=== PATIENT | female | born 1935 | race Caucasian/White ===

== ENCOUNTER 2019-05-16 10:20 | Emergency (ER) | payer OTHER, SELFPAY ==
--- NOTE | ~2019-05-16 | XR_ITS ---
EXAMINATION: XR chest 2V DATE: 05/16/2019 10:49 INDICATION: Acute chest pain. TECHNIQUE: Frontal and lateral views of the chest were obtained. COMPARISON: Chest single view 08/17/2013 FINDINGS: There are small pleural effusions. There is mild atelectasis in right midlung zone. No pneu mothorax. The heart size is normal. There are changes of heart valve replacement. There is a left carlitos st wall pacer with leads in the right atrium and right ventricle. IMPRESSION: 1. Mild atelectasis in right midlung zone. 2. Small pleural effusions. Reviewed, dictated and finalized at location [facility]
--- NOTE | 2019-05-16 10:21 | ECG_ITS ---
Measurements Intervals [place] Rate: 70 P: [place]: 0 QRS: -70 QRSD: 163 T: 76 QT: 486 QTc: 527 Interpretive Statements ATRIAL SENSE- ELECTRONIC VENTRICULAR PACEMAKER UNDERLYING ECTOPIC ATRIAL RHYTHM BASELINE WANDER- I, III NO FURTHER INTERPRETATION IS POSSIBLE ABNORMAL ECG Electronically Signed On 05-16-2019 13:50:58 PIE MAKER by Osmel Adhikari D.O.
[2019-05-16 10:30] VITALS: BP 159/72; PULSE 70; RESP 18; TEMP 36.6; O2SAT 100
--- NOTE | 2019-05-16 10:38 | ED.CHESTPAIN ---
HPI - Chest Pain General Chief Complaint: Chest Pain Stated Complaint: CP Time Seen by Provider: 05/16/19 10:36 Source: patient Mode of arrival: ambulatory Limitations: no limitations History of Present Illness HPI narrative: An 83 y/o female presents to the ED with c/o CP. Pt states that the CP has been intermittent for the past 2 months. She notes that the CP is usually dull, but occasionally increases in severity. Pt was seen by her weather strip installer, Dr. Martin, on 05/12/19. She also notes left arm pain that starts in her left hand that radiates all the way to her left chest. Pt reports SOB and slight cough, but denies diaphoresis, fever, vomiting, decreased food and liquid intake, and BLE swelling. She has a PMHx of valve replacement, CABG, CAD, and cardiac catheterization. She take Aspirin daily. MD complaint: chest pain Pertinent past history: coronary artery disease and CABG Onset (ago): month(s) (2) Timing of current episode: episodic Quality: dull Associated symptoms: dyspnea, cough (Slight) and other (Left arm pain) Treatment prior to arrival: aspirin Related Data Home Medications Medication Instructions Recorded Confirmed aspirin 81 mg PO DAILY 05/16/19 cholecalciferol (vitamin D3) 2,000 unit PO DAILY 05/16/19 [Vitamin D3] metoprolol tartrate 25 mg PO BID 05/16/19 solifenacin [Vesicare] 10 mg PO DAILY 05/16/19 Allergies Allergy/AdvReac Type Severity Reaction Status Date / Time No Known Allergies Allergy Verified 05/16/19 11:33 Review of Systems Review of Systems: Narrative: CONSTITUTIONAL: Denies fever, decreased food and liquid intake, chills, or sweats. EYES: Denies visual changes, redness, or discharge. ENT: Denies rhinorrhea, congestion, sore throat, or otalgia. CARDIOVASCULAR: Denies palpitations, diaphoresis, or BLE edema. Reports chest pain. RESPIRATORY: Reports slight cough or dyspnea. GASTROINTESTINAL: Denies abdominal pain, nausea, vomiting, or diarrhea. SKIN: Denies rash or itching. MUSCULOSKELETAL: Denies back pain or joint pain. Reports left arm pain. NEUROLOGIC: Denies headache, numbness, or weakness. All systems reviewed & are unremarkable except as noted in HPI and below PMFSH Past Medical History Medical History (Updated 05/16/19 @ 13:45 by Allison Monzon MD) Anemia Arthritis Asthma CAD (coronary artery disease) Cancer Mandible as child Cataracts, bilateral CHF (congestive heart failure) Chronic back pain Colonic polyp Diabetes Dialysis patient Hemorrhoids Herniated disc History of radiation therapy HTN (hypertension) Hyperlipidemia Kidney stones Mitral valve regurgitation Pneumonia Rectal polyp UTI (urinary tract infection) Surgical History Surgical History (Updated 05/16/19 @ 11:30 by Bonita Lo) History of appendectomy History of cardiac catheterization History of colonoscopy History of hysterectomy History of lithotripsy History of mitral valve repair History of tonsillectomy Hx of CABG Family History Family History Mother Hypertension Other Family history of arthritis Social History Social History Smoking status: Never smoker Alcohol intake: never Exam Narrative: Exam Narrative: GENERAL: Well-appearing, well-nourished, and in no acute distress. HEAD: Normocephalic, atraumatic. EYES: PERRLA and EOMI. ENT: Nares clear, no rhinorrhea or epistaxis. Mucous membranes moist. NECK: Supple. CHEST: Clear to auscultation. No respiratory distress. HEART: Regular rate and rhythm. Normal peripheral pulses. Grade 1 faint systolic heart murmur. ABDOMEN: Soft, nontender, nondistended, normal active bowel sounds. EXTREMITIES: Normal range of motion. No edema. SKIN: Warm, dry, no rash. NEURO: No focal deficits. Alert and oriented X3. Course Course Emergency Course: Patient presented for evaluation of chest pain. Chest pain has been intermittent since yest
[2019-05-16 10:50] LABS: Basophils Absolute Auto 0.1 K/mm3 (0.0-0.1); Basophils Percent Auto 0.8 % (0.2-1.2); Eosinophils Absolute Auto 0.2 K/mm3 (0-0.3); Eosinophils Percent Auto 2.6 % (0-4.4); Hematocrit 34.2 % (37.0-47.0); Hemoglobin 10.2 g/dL (12.0-15.0); Immature Granulocyte Absolute 0.02 K/mm3 (0.00-0.031); Immature Granulocyte Percent A 0.3 % (0-0.5); Lymphocytes Percent Auto 15.9 % (18.3-44.2); Mean Corpuscular HGB Conc 29.8 g/dl (32-36); Mean Corpuscular Hemoglobin 23.1 pg (26-34); Mean Corpuscular Volume 77.4 fl (80-100); Mean Platelet Volume 10.6 fl (7.4-10.4); Monocytes Absolute Auto 0.6 K/mm3 (0.1-0.6); Monocytes Percent Auto 8.5 % (2.6-8.5); Neutrophils Absolute Auto 5.4 K/mm3 (1.3-6.7); Neutrophils Percent Auto 71.9 % (45.5-73.1); Platelet Count Result 192 k/mm3 (150-375); Red Blood Count 4.42 M/mm3 (4.2-5.4); Red Cell Distribution Width 15.2 % (11.5-14.5); White Blood Count 7.6 K/mm3 (4.5-10.0)
[2019-05-16 10:57] LABS: Ovalocytes 2+ (NORMAL); Platelet Estimate Adequate (Adequate)
[2019-05-16 11:00] LABS: Prothrombin Time 13.2 Seconds (11.1-14.7)
[2019-05-16 11:01] LABS: Partial Thromboplastin Time 28.2 SECONDS (22.3-36.8)
[2019-05-16 11:02] LABS: Blood Urea Nitrogen 23 mg/dL (7-17); Calcium 8.8 mg/dL (8.4-10.2); Carbon Dioxide 28 mmol/L (22-30); Chloride 99 mmol/L (98-107); Estimated Glomerular Filt Rate 48; Glucose 107 mg/dL (65-105); Potassium 3.9 mmol/L (3.4-5.0); Sodium 138 mmol/L (137-145)
[2019-05-16 11:14] LABS: Troponin I < 0.012 ng/mL (0.000-0.034)
[2019-05-16] MEDS: ACETAMINOPHEN 500 MG TABLET 1000 MG PO (12:33)
[2019-05-16] MEDS: KETOROLAC 15 MG/ML VIAL (*BKC) IV PUSH (12:34)
[2019-05-16 12:43] VITALS: BP 168/70; PULSE 70; RESP 18; O2SAT 100
[2019-05-16 13:10] LABS: Troponin I < 0.012 ng/mL (0.000-0.034)
[2019-05-16 14:05] VITALS: BP 139/78; PULSE 70; RESP 20; O2SAT 99
== END 2019-05-16 14:10 | disposition home or self-care (01) ==
PROVIDERS: Emergency Provider Emergency Medicine; PCP Internal Medicine
DX: R07.89 Other chest pain (principal); I25.10 Atherosclerotic heart disease of native coronary artery without angina pectoris; Z95.1 Presence of aortocoronary bypass graft; Z95.2 Presence of prosthetic heart valve; Z79.82 Long term (current) use of aspirin; M19.90 Unspecified osteoarthritis, unspecified site; J45.909 Unspecified asthma, uncomplicated; I50.9 Heart failure, unspecified; Z87.440 Personal history of urinary (tract) infections; E78.5 Hyperlipidemia, unspecified; H26.9 Unspecified cataract; I11.0 Hypertensive heart disease with heart failure; E11.9 Type 2 diabetes mellitus without complications; G30.9 Alzheimer's disease, unspecified; F02.80 Dementia in other diseases classified elsewhere, unspecified severity, without behavioral disturbance, psychotic disturbance, mood disturbance, and anxiety; Z95.0 Presence of cardiac pacemaker; R94.31 Abnormal electrocardiogram [ECG] [EKG]
CPT/HCPCS: 36415; 71046; 80048; 84484; 85025; 85610; 85730; 93005; 96374; 99284; A9270; J1885

== ENCOUNTER 2019-12-10 20:37 | Emergency (ER) | payer OTHER, SELFPAY ==
--- NOTE | ~2019-12-10 | CT_ITS ---
EXAMINATION: CT abdomen pelvis w con INDICATION: Abdominal pain, dark stool TECHNIQUE: Computed tomographic images of the abdomen and pelvis were obtained after the administrati on of 100 cc of Omnipaque 350 intravenous contrast. The dose-length product (DLP) was 1105.89 mGy-cm. Automated exposure control and iterative reconstruction technique were employed. COMPARISON: 01/28/2007 FINDINGS: Cardiomegaly is noted. There is dense calcification of the mitral annulus. A small loculate d right pleural effusion is present. Cholelithiasis is noted. There is inflammation of the gallbladde r and first and second portions of the duodenum. There is a questionable fistula between the gallblad elham and first portion of the duodenum. There is intrahepatic and extrahepatic biliary dilatation. The re is a 1.3 cm round hyperdense area in the gallbladder fossa which appears to be contiguous with the right hepatic artery (image 54). A second linear hyperdensity of the gallbladder measuring 1.7 x 0.4 cm is seen adjacent to the gallstone and is possibly contiguous with the round area (image 60). The spleen, pancreas, and adrenal glands are normal. Nonobstructing stones of the kidneys measure up to 5 mm on the right. There is a 1.6 cm cyst of the left kidney. Additional smaller lesions of the kidney s are too small to characterize. There is calcified atherosclerosis of the aorta and many of the othe r arteries. No pathologically enlarged abdominal or pelvic lymph nodes are identified. Colonic divert iculosis is present without evidence of diverticulitis. There is severe lumbar spondylosis. IMPRESSION: 1. Right upper quadrant inflammatory change within appearance suggestive of cholecystitis and possibl e fistula to the small bowel. 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 Surgical evaluation is recommended. These findings and recommendations were discu ssed with Dr. Tosha Stoddard MD in the Emergency Department at 2345 hours on 12/10/2019. Reviewed, dictated and finalized at location A. IMPRESSION: 1. Right upper quadrant inflammatory change within appearance suggestive of cho lecystitis and possible fistula to the small bowel. 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 Surgical evaluation is recommended. These findings and recommendations w ere discussed with Dr. Tosha Stoddard MD in the Emergency Department at 2345 ho urs on 12/10/2019.
--- NOTE | 2019-12-10 20:51 | ED.GIBLEED ---
HPI - GI Bleed General Chief complaint: GI Bleed Stated complaint: blood in stool Time Seen by Provider: 12/10/19 20:42 Source: patient and family Mode of arrival: EMS History of Present Illness HPI Narrative: 84 years old white female presents with sudden onset of right abdominal pain radiating to the mid back, vomiting up pinkish phlegm, passing a lot of blood per rectum. Started 4 hours prior to arrival to the emergency room. Patient on aspirin, history of dementia. Patient is DNR Related Data Home Medications Medication Instructions Recorded Confirmed aspirin 81 mg PO DAILY 05/16/19 12/10/19 cholecalciferol (vitamin D3) 2,000 unit PO DAILY 05/16/19 12/10/19 [Vitamin D3] Allergies Allergy/AdvReac Type Severity Reaction Status Date / Time No Known Allergies Allergy Verified 12/10/19 21:06 Review of Systems Review of Systems: Narrative: CONSTITUTIONAL: Denies fever, chills, or sweats. EYES: Denies visual changes, redness, or discharge. ENT: Denies rhinorrhea, congestion, sore throat, or otalgia. CARDIOVASCULAR: Denies chest pain, palpitations, or edema. RESPIRATORY: Denies cough or dyspnea. GASTROINTESTINAL: Denies abdominal pain, nausea, vomiting, or diarrhea. GENITOURINARY: Denies dysuria or hematuria. SKIN: Denies rash or itching. MUSCULOSKELETAL: Denies back pain, joint pain, or myalgia. NEUROLOGIC: Denies headache, numbness, or weakness. PSYCHIATRIC: Denies anxiety or depression. [facility] Past Medical History Medical History Anemia Arthritis Asthma CAD (coronary artery disease) Cancer Mandible as child Cataracts, bilateral CHF (congestive heart failure) Chronic back pain Colonic polyp Diabetes Dialysis patient Hemorrhoids Herniated disc History of radiation therapy HTN (hypertension) Hyperlipidemia Kidney stones Mitral valve regurgitation Pneumonia Rectal polyp UTI (urinary tract infection) Surgical History Surgical History History of appendectomy History of cardiac catheterization History of colonoscopy History of hysterectomy History of lithotripsy History of mitral valve repair History of tonsillectomy Hx of CABG Family History Family History Mother Hypertension Other Family history of arthritis Social History Social History Smoking status: Never smoker Second hand tobacco smoke exposure: No Alcohol intake: unknown Substance use type: unknown Exam Narrative: Exam Narrative: General appearance: Well-developed, well-nourished Skin: Normal color Head: Normocephalic, nontraumatic Eyes: Clear conjunctiva ENT: Oropharynx normal, ears normal, nose normal Neck: Supple, nontender Chest and respiratory: Airway patent, no respiratory distress, no accessory muscle use Heart: Regular rate/rhythm Abdomen: Soft, diffuse tenderness, no organomegaly, quiet bowel sounds rectal exam showed gross blood, guaiac positive, severe hemorrhoids Vascular: Normal peripheral pulses, normal capillary refill. Musculoskeletal: Normal range of motion, nontender back Neurologic: Alert oriented to her name, age and the name of the president, TUCK POINTER is normal as tested, no gross motor deficit Course Course Emergency Course: Patient had constant abdominal pain requires morphine every 30 to 40 minutes. Patient is hemodynamically stable Consultations Consultation #1: Dr. Mar Patient probably needs a vascular surgeon and need to go somewhere else Date: 12/11/19 Time: 00:37 Consultation #2: [facility].
[2019-12-10 20:56] VITALS: BP 186/79; PULSE 87; RESP 16; TEMP 36.9; O2SAT 100
[2019-12-10] MEDS: SODIUM CHLORIDE 0.9% IV 1,000 ML 500 ML IV CONT (21:04)
[2019-12-10] MEDS: ONDANSETRON INJ 4 MG/2 ML VIAL IV PUSH (21:43)
[2019-12-10] MEDS: MORPHINE SULFATE (*CRX) 2 MG/ML INJ IV PUSH ×2 (21:43→23:04)
[2019-12-10 21:44] VITALS: BP 192/75; PULSE 73; RESP 16; O2SAT 100
[2019-12-10 21:57] LABS: Lactic Acid Reflex 1.6 mmol/L (0.7-2.1)
[2019-12-10 22:04] LABS: Basophils Absolute Auto 0.1 K/mm3 (0.0-0.1); Basophils Percent Auto 0.3 % (0.2-1.2); Hemoglobin 9.2 g/dL (12.0-15.0); Immature Granulocyte Absolute 0.11 K/mm3 (0.00-0.031); Immature Granulocyte Percent A 0.7 % (0-0.5); Lymphocytes Absolute Auto 0.54 K/mm3 (0.9-3.2); Lymphocytes Percent Auto 3.3 % (18.3-44.2); Mean Corpuscular HGB Conc 29.7 g/dl (32-36); Mean Corpuscular Volume 67.2 fl (80-100); Mean Platelet Volume 10.5 fl (7.4-10.4); Monocytes Absolute Auto 0.9 K/mm3 (0.1-0.6); Monocytes Percent Auto 5.3 % (2.6-8.5); Neutrophils Absolute Auto 14.7 K/mm3 (1.3-6.7); Neutrophils Percent Auto 90.4 % (45.5-73.1); Platelet Count Result 215 k/mm3 (150-375); Red Blood Count 4.61 M/mm3 (4.2-5.4); Red Cell Distribution Width 17.7 % (11.5-14.5); White Blood Count 16.3 K/mm3 (4.5-10.0)
[2019-12-10 22:18] VITALS: BP 197/75; PULSE 70; RESP 18; O2SAT 99
[2019-12-10 22:18] LABS: INR 1.1
[2019-12-10 22:19] LABS: Partial Thromboplastin Time 28.5 SECONDS (22.3-36.8)
[2019-12-10 22:36] LABS: Ovalocytes 3+ (NORMAL); Platelet Estimate Adequate (Adequate)
[2019-12-10 22:37] LABS: Alanine Aminotransferase 108 U/L (4-35); Albumin Level 3.7 g/dL (3.5-5.1); Alkaline Phosphatase 266 U/L (38-126); Anion Gap 9 mmol/L (8-16); Aspartate Amino Transferase 257 U/L (14-36); Bilirubin,Total 1.5 mg/dL (0.2-1.3); Blood Urea Nitrogen 27 mg/dL (7-17); Burr Cells 2+ (NORMAL); Calcium 8.8 mg/dL (8.4-10.2); Carbon Dioxide 23 mmol/L (22-30); Chloride 103 mmol/L (98-107); Estimated Glomerular Filt Rate 53; Glucose 186 mg/dL (65-105); Magnesium 1.8 mg/dL (1.6-2.3); Potassium 4.3 mmol/L (3.4-5.0); Schistocytes 1+ (NORMAL); Sodium 135 mmol/L (137-145)
[2019-12-10 23:03] VITALS: BP 188/77; PULSE 70; RESP 18; O2SAT 99
[2019-12-10 23:57] LABS: Add Urine Microscopic? YES; Appearance Urine Clear (Clear); Bilirubin Urine Negative (Negative); Blood Urine Negative (Negative); Color Urine Yellow (Yellow); Glucose Urine UA Negative (Negative); Ketones Urine Trace mg/dL (Negative); Leukocyte Esterase Ur Negative LEU/UL (Negative); Mucus Urine Rare /lpf; Nitrate Urine Negative (Negative); Protein Urine Negative (Negative); RBC Urine 0-2 /hpf (0-2); Specific Grav Ur 1.026 (1.001-1.035); Squamous Epithelial Cell Urine Rare /hpf (Few); WBC Urine 0-3 /hpf
[2019-12-11] MEDS: ONDANSETRON INJ 4 MG/2 ML VIAL IV PUSH (00:11)
[2019-12-11] MEDS: MORPHINE SULFATE (*CRX) 2 MG/ML INJ IV PUSH (00:11)
[2019-12-11 00:17] VITALS: BP 182/73; PULSE 70; RESP 16; O2SAT 98
--- NOTE | 2019-12-11 00:21 | PC.NURSE ---
called [facility] to transport patient. ETA [id number]
--- NOTE | 2019-12-11 00:25 | PC.NURSE ---
called [facility] to request transport. declined
--- NOTE | 2019-12-11 00:34 | PC.NURSE ---
called [facility] at [phone] to request transport. [facility] return call at [phone] and declined
--- NOTE | 2019-12-11 00:36 | PC.NURSE ---
called [facility] to request transport. declined
[2019-12-11 01:11] VITALS: BP 179/88; PULSE 75; RESP 16; O2SAT 99
== END 2019-12-11 01:19 | disposition short-term general hospital (02) ==
PROVIDERS: Emergency Provider Emergency Medicine; PCP Internal Medicine
DX: K81.0 Acute cholecystitis (principal); K92.2 Gastrointestinal hemorrhage, unspecified; I72.9 Aneurysm of unspecified site; Z66 Do not resuscitate; D64.9 Anemia, unspecified; F03.90 Unspecified dementia, unspecified severity, without behavioral disturbance, psychotic disturbance, mood disturbance, and anxiety; M19.90 Unspecified osteoarthritis, unspecified site; I25.10 Atherosclerotic heart disease of native coronary artery without angina pectoris; I50.9 Heart failure, unspecified; E11.9 Type 2 diabetes mellitus without complications; I11.0 Hypertensive heart disease with heart failure; J45.909 Unspecified asthma, uncomplicated; E78.5 Hyperlipidemia, unspecified; Z92.3 Personal history of irradiation; Z87.442 Personal history of urinary calculi; Z86.010 Personal history of colon polyps; Z87.19 Personal history of other diseases of the digestive system; Z79.82 Long term (current) use of aspirin; Z85.830 Personal history of malignant neoplasm of bone; Z95.1 Presence of aortocoronary bypass graft
CPT/HCPCS: 36415; 51701; 74177; 80053; 81001; 83605; 83735; 85025; 85610; 85730; 86850; 86900; 86901; 96361; 96365; 96375; 96376; 99285; J2270; J2405; J2543; J7030; Q9967